=== PATIENT | male | born 1965 | race Caucasian/White ===

== ENCOUNTER → 2020-05-08 | Outpatient (CLI) | payer OTHER ==
--- NOTE | 2020-05-08 14:49 | CTL ---
EXAMINATION TYPE: CT Low Dose Lung DATE OF EXAM ORDERED: 05/08/2020 HISTORY: Long-term tobacco use. Lung cancer screening CT DLP: 180.[address] CTDI: 4.3 mGy Automated exposure control for dose reduction was used. SCREENING VISIT: Initial study COMPARISON: None. TECHNIQUE: Low dose computed tomography scan was performed through the chest at 1 mm thick sections a nd reconstructed images in the coronal plane at [address] DIAGNOSTIC QUALITY: Satisfactory FINDINGS: LUNG NODULES: Present, detailed below: There is 5 mm right middle lobe nodule anteriorly axial image 165. LUNGS: COPD: Severity: Mild to moderate Fibrosis: Severity: Mild Lymph nodes: No greater than 1 cm Other findings: There is 3.3 cm thin-walled cyst in the lingula with is small crossing vessel. BILATERAL PLEURAL SPACE: Effusion: None Calcification: None Thickening: None Pneumothorax: None HEART: Heart Size: Normal Coronary calcification: Moderate in the LAD and left circumflex distribution Pericardial effusion: None OTHER FINDINGS: Upper abdomen: None, limited evaluation due to habitus and low-dose technique Bony thorax: None Supraclavicular region: None Other: Symmetric bilateral subareolar flame-shaped gynecomastia. IMPRESSION: [id number] emphysematous change with 5 mm lingular nodule. FOLLOW UP CT CHEST RECOMMENDATION: Annual low-dose lung screening CT CT LUNG RAD: Lung-Rad 2 Benign Appearance or Behavior
== END | disposition home or self-care (01) ==
LOC: RADCTMAIN 13:50
PROVIDERS: ATTEND Internal Medicine
DX: Z12.2 Encounter for screening for malignant neoplasm of respiratory organs (principal); J43.9 Emphysema, unspecified; F17.210 Nicotine dependence, cigarettes, uncomplicated

== ENCOUNTER → 2020-09-04 | Outpatient (CLI) | payer OTHER ==
--- NOTE | 2020-09-04 14:43 | P.SLEEP ---
History of Present Illness H&P Date: 09/04/20 this is a 55-year-old male patient with a recently established of obstructive sleep apnea. The patient has or clinical features of sleep apnea including loud snoring, apneas and excessive fatigue and sleepiness during the day. He is morbidly obese and currently weighs 411 pounds and he carries a body mass index of 54.2. His Hamilton score is at 5. The patient has history of coronary artery disease and he has had previous myocardial infarction requiring coronary stent insertion, he has hypertension, hyperlipidemia and chronic back pain. Recently he was also treated for kidney stones requiring nephrolithiasis. He is a chronic smoker. He smokes on pack of cigarettes a day. He underwent a [facility] home sleep study and this was facilitated through his primary care physician and the patient was told to have severe obstructive sleep apnea for that reason he was referred to me. I'm in the process of locating in evaluating his home sleep study. He did not have the results of his sounds are study with him at a time of this evaluation. In any rate, very much committed to the patient is a case of severe NAV based on his symptoms and is obvious in the stomach features. The patient states that by 1 PM, he gets very tired and he can easily doze off. He was to bed between midnight and he gets out of bed between 8 and 9 AM in the morning. On weekends, he maintains the same sleep schedule. He is averaging around 7-9 hours of sleep. He sleeps in different body positions. He prefers to sleep on his side. He drinks one cup of coffee in the morning. No alcoholism. No substance abuse. No sleep paralysis. No hallucinations. No cataplexy. He has chronic pain in his back. No symptoms of restlessness and lower extremities. No history of head trauma. No history of meningitis. No history of any CVA or cardiac arrhythmias and atrial fibrillation. No history of any form asleep while driving. No history of any motor vehicle accidents because of feeling drowsy or sleepy.no reported history of grinding of the teeth, no insomnia, no anxiety, no depression, no panic att acks, no palpitation, no sleepwalking, no sleep talking, no unusual behavior at nighttime during sleep. No sweating. No claustrophobia. No issues with memory or concentration at this point in time Review of Systems Constitutional: Reports daytime sleepiness, Reports fatigue, Reports weight gain Eyes: denies as per HPI, denies blurred vision, denies bulging eye, denies decreased vision, denies diplopia, denies discharge, denies dry eye, denies irritation, denies itching, denies pain, denies photophobia, denies loss of peripheral vision, denies loss of vision, denies tunnel vision/blind spots Ears: deny: decreased hearing Ears, nose, mouth and throat: Denies headache, Denies sore throat Breasts: absent: as per HPI, gynecomastia Cardiovascular: Reports shortness of breath Respiratory: Reports dyspnea, Reports snoring Gastrointestinal: Reports as per HPI Genitourinary: Reports as per HPI Musculoskeletal: Reports low back pain Musculoskeletal: absent: ankle pain, ankle stiffness, ankle swelling, as per HPI, elbow pain, elbow stiffness, elbow swelling, foot pain, foot stiffness, foot swelling, hand pain, hand stiffness, hand swelling, hip pain, hip stiffness, hip swelling, knee pain, knee stiffness, knee swelling, shoulder pain, shoulder stiffness, shoulder swelling, wrist pain, wrist stiffness, wrist swelling Integumentary: Reports as per HPI Neurological: Reports as per HPI Psychiatric: Reports as per HPI Endocrine: Reports as per HPI Past Medical History Past Medical History: Coronary Artery Disease (CAD), Hyperlipidemia, Hypertension, Myocardial Infarction (IN), Osteoarthritis (OA), Sleep Apnea/CPAP/BIPAP Additional Past Medical History / Comment(s): morbid obesitywith a body mass index of 54, obstructive sleep apnea, neuropathy, chronic back pain, CAD and previous IN w.stents 2005, hyperlipidemia, hypertension Last Myocardial Infarction Date:: January 2006 History of Any Multi-Drug Resistant Organisms: None Reported Past Surgical History: No Surgical Hx Reported, Heart Catheterization With Stent Additional Past Surgical History / Comment(s): coronary stents, lithotripsy for kidney stones, vasectomy, distal clavicular resection Past Anesthesia/Blood Transfusion Reactions: No Reported Reaction Date of Last Stent Placement:: 2005 Past Psychological History: No Psychological Hx Reported Smoking Status: Current every day smoker (the patient continues to smoke 1 pack of cigarettes a day) Past Alcohol Use History: None Reported Past Drug Use History: None Reported - Past Family History Father Additional Family Medical History / Comment(s): the father of heart disease when the patient was quite young and he is not aware of the details. Heart problems are also present in his mother. Medications and Allergies Home Medications Medication Instructions Recorded Confirmed Type Gabapentin [Neurontin] 100 mg PO TID 12/13/13 12/13/13 History Aspirin EC [Ecotrin] 325 mg PO DAILY #30 tablet. 12/15/13 Rx Atorvastatin [Lipitor] 40 mg PO DAILY #30 tablet 12/15/13 Rx Enalapril [Vasotec] 5 mg PO BID #60 tab 12/15/13 Rx Metoprolol Tartrate [Lopressor] 12.5 mg PO BID #60 tab 12/15/13 Rx Nitroglycerin Sl Tabs [Nitrostat] 0.4 mg SUBLINGUAL Q5M PRN #25 tab 12/15/13 Rx Prasugrel [Effient] 10 mg PO DAILY #30 tab 12/15/13 Rx Allergies Allergy/AdvReac Type Severity Reaction Status Date / Time No Known Allergies Allergy Verified 12/13/13 05:26 Physical Exam The patient appeared well nourished and normally developed. Vital signs as documented. the patient is morbidly obese and the patient has a Mallampati class II. Head exam is unremarkable. No scleral icterus or corneal arcus noted. Neck is without jugular venous distension, thyromegaly, or carotid bruits. Carotid upstrokes are brisk bilaterally. Lungs are clear to auscultation and percussion. Cardiac exam reveals the PMI to be normally sized and situated. Rhythm is regular. First and second heart sounds normal. No murmurs, rubs or gallops. Abdominal exam reveals normal bowel sounds, no masses, no organomegaly and no aortic enlargement. Extremities are nonedematous and both femoral and pedal pulses are normal.no organs cannot be accurately palpated as the patient is morbidly obese and he has excessive abdominal fat.Examination of the skin revealed no evidence of significant rashes, suspicious appearing nevi or other concerning lesions.Neurologically, the patient is awake and alert and the patient does not have any focal neurological deficit. Cranial nerves are essentially intact. Assessment and Plan Plan: 1 obstructive sleep apnea, symptomatic confirmed by a [facility] home sleep study testing and the patient is presenting for treatment. 2 chronic hypersomnia, Hamilton score of 5 3 morbid obesity with body mass index of 54.2 and current body weight of 411 pounds 4 coronary artery disease with previous carotid infarction requiring coronary stenting 5 hypertension 6 hyperlipidemia 7 chronic back pain 8 nephrolithiasis Plan Encourage weight loss Smoking cessation counseling was done Implement good sleep hygiene measures and avoid any pulmonary alcoholic beverages in the afternoon or late evening Sleep on his side Retrieve the patient's home sleep study testing results from his primary care physician Proceed with a CPAP titration and this will be needed to appropriately pick his CPAP pressure that needs to be used to eliminate his obstructive respiratory events and provide the patient with the appropriate mask interface. The patient is willing to undertake the treatment and the patient is committed to treatment for now knowing that he is quite symptomatic. I'll see the patient is a 90 days after completing a CPAP titration for further adjustments if needed. We'll continue to follow. Sleep Note - Sleep Data Previous Sleep Study: Yes Previous Sleep Study Location: previous study was done through [facility], the results are going to be forw - Sleep Note Sleep Note: Temperature: 97.1 Pulse Rate: 94 Respiratory Rate: 20 Blood Pressure: 147/84 SpO2: 96% Height: 6feet1 inches Weight: 411 pounds BMI: 54.2 Neck Circumference: 21 home sleep study testing was done on this patient
== END | disposition home or self-care (01) ==
LOC: SLEEP 13:54
PROVIDERS: ATTEND Internal Medicine Critical Care Medicine
DX: G47.33 Obstructive sleep apnea (adult) (pediatric) (principal); E66.01 Morbid (severe) obesity due to excess calories; I25.10 Atherosclerotic heart disease of native coronary artery without angina pectoris; I10 Essential (primary) hypertension; E78.5 Hyperlipidemia, unspecified; G89.29 Other chronic pain; M54.9 Dorsalgia, unspecified; N20.0 Calculus of kidney; Z68.43 Body mass index [BMI] 50.0-59.9, adult; Z95.5 Presence of coronary angioplasty implant and graft; Z79.82 Long term (current) use of aspirin; Z79.899 Other long term (current) drug therapy
CPT/HCPCS: 99211

== ENCOUNTER → 2022-12-18 | Outpatient (CLI) | payer OTHER ==
--- NOTE | 2022-12-18 18:09 | US ---
EXAMINATION TYPE: US venous doppler duplex LE RT DATE OF EXAM: 12/18/2022 2:48 PM COMPARISON: NONE CLINICAL INDICATION: Male, 57 years old with history of L97.415 NON-PRS CHR ULC OF R HEEL/MIDFT W MSL INVL; venous ulcer rt heel SIDE PERFORMED: Right TECHNIQUE: The lower extremity deep venous system is examined utilizing real time linear array sonog ana with graded compression, doppler sonography and color-flow sonography. VESSELS IMAGED: Common Femoral Vein Deep Femoral Vein Greater Saphenous Vein * Femoral Vein Popliteal Vein Proximal Calf Veins (* superficial vessels) Right Leg: Negative for DVT Outreach Representative notes: Exam limited due to increased body habitus and edema IMPRESSION: No evidence for DVT within the right lower extremity imaged from the groin to the upper c shelter.
== END | disposition home or self-care (01) ==
LOC: RADUSWWP 13:50
PROVIDERS: ATTEND Nurse Practitioner Family
DX: L97.415 Non-pressure chronic ulcer of right heel and midfoot with muscle involvement without evidence of necrosis (principal)
CPT/HCPCS: 93923

== ENCOUNTER → 2023-02-06 | Outpatient (CLI) | payer OTHER | END | disposition home or self-care (01) | LOC: RADCTMAIN 10:53 | PROVIDERS: ATTEND Surgery | DX: Z53.9 Procedure and treatment not carried out, unspecified reason (principal) ==

== ENCOUNTER → 2023-02-18 | Outpatient (CLI) | payer OTHER ==
--- NOTE | 2023-02-21 09:32 | CT ---
EXAMINATION TYPE: CT angio abd aorta w/Runoff CT DLP: 4026.80 mGycm, Automated exposure control for dose reduction was used. DATE OF EXAM: 02/18/2023 5:19 PM COMPARISON: None CLINICAL INDICATION:Male, 58 years old with history of I74.3 EMBOLISM AND THROMBOSIS OF ARTERIES; PHH , poss femoral occlusion. pt has leg wounds with wound vac TECHNIQUE: Multiple thin slice sub-millimeter images were obtained through the abdomen, pelvis, and l ower extremities after administration of contrast. 3-D reconstructed images and maximum intensity pr ojection images were obtained of the abdomen, pelvis, and lower extremities. CT Contrast: Contrast used:100 mL of Isovue 370 without and with IV Contrast, Oral contrast used: None FINDINGS: CTA Abdomen and pelvis: Motion limited exam. The abdominal aorta does not demonstrate aneurysmal dila tation. Atherosclerotic plaquing is identified within the abdominal aorta. The origins of the super ior mesenteric artery, renal arteries, inferior mesenteric artery, and celiac axis are patent. The i liac vessels are normal in morphology CTA Lower extremities: Right: The common femoral artery is patent. The superficial femoral artery which is high-grade narrow ing and then occlusion. Occlusion extends approximately 15 mm in length. There is reconstitution just before the popliteal artery. Visualized portions of the anterior and posterior tibial arteries is pa tent posterior tibial artery crosses the ankle. The intervertebral artery becomes diminutive and may be partially due to poor contrast timing. Left: The common femoral artery is patent. There is scattered atherosclerotic disease with at least 5 0% stenosis luminal narrowing more distally. The artery is patent. The popliteal artery is patent. Th e anterior and posterior tibial arteries are patent and cross the ankle. LOWER CHEST: No evidence of focal consolidation, pneumothorax or pleural effusion. Air cyst within th e left lower lung partially visualized. LIVER: Unremarkable GALLBLADDER AND BILE DUCTS: Unremarkable. PANCREAS: Unremarkable. SPLEEN: Unremarkable. ADRENAL GLANDS: Unremarkable. KIDNEYS AND URETERS: No evidence of hydronephrosis or renal calculus. The ureters are unremarkable. PELVIS BLADDER: Unremarkable REPRODUCTIVE: Unremarkable. ABDOMEN & PELVIS STOMACH AND BOWEL: No evidence of bowel obstruction. PERITONEUM: No evidence of pneumoperitoneum or free fluid. VASCULATURE: No evidence of aortic aneurysm. MUSCULOSKELETAL: No acute osseous abnormalities LYMPH NODES: No gross evidence for lymphadenopathy. SOFT TISSUE/ABDOMINAL WALL: Unremarkable IMPRESSION Right: 1. Occlusion of the superficial femoral artery with reconstitution more distally extending approxima tely 15 cm in length. Just proximal to this occlusion is high-grade areas of narrowing with severe at herosclerotic disease. 2. Posterior tibial artery crosses the ankle. 3. Anterior tibial artery becomes diminutive without definitive contrast seen within the lumen as it crosses the ankle. Finding could be secondary to bolus timing. Left: 1. No evidence for occlusion. 2. The superficial femoral artery is patent with at least 50 % stenosis more distally. 3. There are 2 vessels crossing the ankle. Abdominal: 1. No evidence of vascular occlusion. 2. Atherosclerotic disease involving abdominal aorta.
== END | disposition home or self-care (01) ==
LOC: RADCTMAIN 15:39
PROVIDERS: ATTEND Surgery
DX: I74.3 Embolism and thrombosis of arteries of the lower extremities (principal); I70.0 Atherosclerosis of aorta
CPT/HCPCS: 75635; Q9967